=== PATIENT | male | born 1955 | race African-American/Black ===

== ENCOUNTER 2020-02-04 15:13 | Emergency (ER) | payer OTHER ==
[2020-02-04] MEDS ORDERED: Ibuprofen 800 MG TAB ONE (15:50)
[2020-02-04] MEDS ORDERED: Clindamycin 150 MG CAP ONE (15:50)
== END 2020-02-04 15:55 | disposition home or self-care (01) ==
LOC: MADERS 15:13
DX: L03.115 Cellulitis of right lower limb (principal); E11.9 Type 2 diabetes mellitus without complications; I10 Essential (primary) hypertension; F17.210 Nicotine dependence, cigarettes, uncomplicated
CPT/HCPCS: 99283

== ENCOUNTER 2023-04-02 17:39 | Emergency (ER) | payer OTHER ==
[~2023-04-02 17:39] MED LIST: Iopamidol 370 76% 100 ML VIAL ONE
[2023-04-02] MEDS ORDERED: Ketorolac Tromethamine 30 MG/ML VIAL ONE (18:36)
[2023-04-02] MEDS ORDERED: Sodium Chloride 0.9% 1,000 ML ONE (18:36)
[2023-04-02 18:48] LABS: ALT (SGPT) 15 U/L (8-55); AST (SGOT) 13 U/L (5-34); Albumin 4.3 g/dL (3.4-4.8); Alkaline Phosphatase 64 U/L (40-110); Anion Gap 17 mmol/L (10-20); BUN (Urea Nitrogen) 24 mg/dL (8.4-25.7); Bilirubin, Total 0.8 mg/dL (0.2-1.2); Calc. Creatinine Clearance 0 mL/min (70-130); Carbon Dioxide 23 mmol/L (23-31); Chloride 100 mmol/L (98-107); Estimated GFR 45; Globulin 3.8 g/dL (2.4-3.5); Glucose 375 mg/dL (80-115); Potassium 4.1 mmol/L (3.5-5.1); Protein, Total 8.1 g/dL (5.8-8.1); Sodium 136 mmol/L (136-145)
[2023-04-02 18:49] LABS: Band 5 % (5-11); Hematocrit 39.4 % (42.0-52.0); Hemoglobin 12.9 g/dL (14.0-18.0); Hypochromia SLIGHT = 6-15 cells (100X) (0-5/hpf); Lymphocytes 34 % (21-51); MDiff Complete? YES; Mean Corpuscular HGB CONC 32.7 g/dL (32.0-36.0); Mean Corpuscular Hemoglobin 27.8 pg (27.0-31.0); Mean Corpuscular Volume 84.9 fl (78.0-98.0); Mean Platelet Volume 14.1 fL (7.4-10.4); Monocytes 7 % (0-10); Neutrophil 54 % (42-75); Platelet Adequacy Comment Appears Adequate; Platelet Count 161 10x3/uL (130-400); RBC Distribution Width 15.9 % (11.5-14.5); Red Blood Cell (RBC) Count 4.63 mill/uL (4.70-6.10)
[2023-04-02 19:12] LABS: Bilirubin Negative (Negative); Blood, Urine Trace (Negative); Glucose, Urine (Dipstick) >=1000 mg/dL (Negative); Ketone, Urine Negative (Negative); Leukocyte Negative (Negative); Nitrite Negative (Negative); Protein, Urine (Dipstick) Negative (Neg-Trace); Specific Gravity, Urine 1.015 (1.005-1.030); Urobilinogen 0.2 mg/dL (Less than 2)
[2023-04-02 19:15] LABS: Clarity Hazy (Clear)
[2023-04-02 19:16] LABS: Bacteria/HPF Rare-Few HPF (None Seen); CAUTI Indications for Culture Dysuria,urgency,freq; RBC/HPF 0-3 HPF (0-3); Squamous Epithelial 0-3 HPF (0-3)
[2023-04-02 19:17] LABS: Urine Culture Reflex No No
[2023-04-02 19:33] LABS: Lipase 1526 U/L (8-78)
[2023-04-02 20:13] LABS: Anion Gap 15 mmol/L (10-20); BUN (Urea Nitrogen) 24 mg/dL (8.4-25.7); Calc. Creatinine Clearance 0 mL/min (70-130); Calcium 9.2 mg/dL (7.8-10.44); Carbon Dioxide 23 mmol/L (23-31); Chloride 103 mmol/L (98-107); Estimated GFR 49; Glucose 326 mg/dL (80-115); Potassium 4.2 mmol/L (3.5-5.1); Sodium 137 mmol/L (136-145)
== END 2023-04-02 20:35 | disposition home or self-care (01) ==
LOC: MADERS 17:39
DX: R10.84 Generalized abdominal pain (principal); E11.65 Type 2 diabetes mellitus with hyperglycemia; N17.9 Acute kidney failure, unspecified; I10 Essential (primary) hypertension; F17.210 Nicotine dependence, cigarettes, uncomplicated; Z79.84 Long term (current) use of oral hypoglycemic drugs
CPT/HCPCS: 74177; 80053; 81001; 83690; 85025; 96361; 96374; J1885; J7050; Q9967

== ENCOUNTER 2024-05-08 09:49 | Emergency (ER) | payer MEDICAID, MEDICARE, OTHER ==
[2024-05-08] MEDS ORDERED: Acetaminophen 325 MG TAB ONE (10:19)
[2024-05-08] MEDS ORDERED: Ibuprofen 200 MG TAB ONE (10:19)
== END 2024-05-08 10:28 | disposition home or self-care (01) ==
LOC: MADERS 09:49
DX: M79.605 Pain in left leg (principal); E11.9 Type 2 diabetes mellitus without complications; I10 Essential (primary) hypertension; F17.210 Nicotine dependence, cigarettes, uncomplicated
CPT/HCPCS: 99283

== ENCOUNTER 2024-05-19 10:18 | Emergency (ER) | payer OTHER | END 2024-05-19 12:03 | disposition home or self-care (01) | LOC: MADERS 10:18 | DX: M79.605 Pain in left leg (principal); E11.40 Type 2 diabetes mellitus with diabetic neuropathy, unspecified; M17.12 Unilateral primary osteoarthritis, left knee; I10 Essential (primary) hypertension; F17.210 Nicotine dependence, cigarettes, uncomplicated; Z79.84 Long term (current) use of oral hypoglycemic drugs | CPT/HCPCS: 72170; 99283 ==

== ENCOUNTER 2025-05-07 08:39 | Emergency (ER) | payer OTHER ==
[2025-05-07] MEDS ORDERED: Iopamidol 370 76% 100 ML VIAL ONE (09:00)
[2025-05-07 09:34] LABS: Hematocrit 44.8 % (42.0-52.0); Hemoglobin 13.5 g/dL (14.0-18.0); Mean Corpuscular Hemoglobin 25.8 pg (27.0-31.0); Mean Corpuscular Volume 85.7 fl (78.0-98.0); Platelet Count 220 10x3/uL (130-400); Red Blood Cell (RBC) Count 5.23 mill/uL (4.70-6.10); White Blood Cell (WBC) Count 7.5 10x3/uL (4.8-10.8)
[2025-05-07 09:45] LABS: INR-International Normal Ratio 0.9; Prothrombin Time 11.8 sec (12.0-14.7)
[2025-05-07 09:46] LABS: PTT 31.9 sec (22.9-36.1)
[2025-05-07 09:51] LABS: ALT (SGPT) 10 U/L (Less than 45); AST (SGOT) 12 U/L (11-34); Albumin 4.6 g/dL (3.1-4.5); Alkaline Phosphatase 64 U/L (40-110); Anion Gap 19 mmol/L (10-20); BUN (Urea Nitrogen) 34 mg/dL (8.4-25.7); Bilirubin, Total 0.7 mg/dL (0.3-1.2); Calc. Creatinine Clearance 0 mL/min (70-130); Calcium 9.9 mg/dL (7.8-10.44); Carbon Dioxide 22 mmol/L (23-31); Chloride 100 mmol/L (98-107); Globulin 3.7 g/dL (2.4-3.5); Glucose 266 mg/dL (80-115); Potassium 4.8 mmol/L (3.5-5.1); Sodium 136 mmol/L (136-145)
[2025-05-07 09:55] LABS: MDiff Complete? YES; Manual Diff?? YES; Platelet Adequacy Comment Appears Adequate
[2025-05-07 10:38] LABS: Troponin I 0.012 ng/mL (< 0.028)
== END 2025-05-07 11:54 | disposition home or self-care (01) ==
LOC: MADERS 08:39
DX: S29.9XXA Unspecified injury of thorax, initial encounter (principal); E86.0 Dehydration; E11.9 Type 2 diabetes mellitus without complications; I10 Essential (primary) hypertension; F17.210 Nicotine dependence, cigarettes, uncomplicated; W22.8XXA Striking against or struck by other objects, initial encounter
CPT/HCPCS: 71260; 74177; 80053; 84484; 85025; 85610; 85730; 93005; 96360; 96361; J7030; Q9967